=== PATIENT | male | born 1990 | race African-American/Black ===

== ENCOUNTER 2022-08-06 13:51 | Emergency (ER) | payer OTHER ==
[~2022-08-06] VITALS: Ht 162.6 cm; Wt 72.1 kg
[2022-08-06] MEDS ORDERED: MORPHINE 4 MG INJ. 4 MG/ML VIAL IVP ONE ×3 (14:30→18:15)
[2022-08-06] MEDS ORDERED: DIPHENHYDRAMINE INJ 50 MG/ML VIAL IVP ONE (14:30)
[2022-08-06] MEDS ORDERED: NACL 0.9% 1,000 ML IV ONE ×2 (14:30→16:15)
[2022-08-06] MEDS ORDERED: ONDANSETRON HCL 4 MG/2 ML VIAL IVP ONE ×3 (14:30→16:15)
[2022-08-06 14:59] LABS: HEMATOCRIT 23.1 % (36-54); HEMOGLOBIN 8.5 g/dL (14.0-18.0); MEAN CORPUSCULAR HEMOGLOBIN 38 pg (27-31); MEAN CORPUSCULAR HGB CONC 37 % (32-36); MEAN CORPUSCULAR VOLUME 102 fL (79.0-98.0); PLATELET COUNT (AUTO) 240 K/uL (130-430); RED BLOOD CELL COUNT(AUTO) 2.26 MIL/uL (4.2-6.2); RED CELL DISTRIBUTION WIDTH 20.7 % (9.0-15.0); WHITE BLOOD COUNT (AUTO) 9.8 K/uL (4.8-10.8)
[2022-08-06 15:14] LABS: ANION GAP 6 (5-15); CALCIUM 7.6 mg/dL (8.4-11.0); CHLORIDE 103 mmol/L (98-107); CREATININE 0.89 mg/dL (0.55-1.30); GFR AFRICAN AMERICAN 126 mL/min (>90); GLUCOSE 112 mg/dL (70-99); UREA NITROGEN, BLOOD 9 mg/dL (8-21)
[2022-08-06 15:20] LABS: ALANINE AMINOTRANSFERASE 11 U/L (12-78); ALBUMIN 3.7 g/dL (3.4-4.8); ASPARTATE AMINOTRANSFERASE 24 U/L (10-37); TOTAL BILIRUBIN 2.2 mg/dL (0.0-1.0)
[2022-08-06 16:35] LABS: EOSINOPHILS % (MANUAL) 0 % (0-7); LYMPHOCYTES % (MANUAL) 36 % (20-46); MONOCYTES % (MANUAL) 13 % (0-11)
[2022-08-06 16:36] LABS: BASOPHILS % (MANUAL) 0 % (0-2)
[2022-08-06 18:53] LABS: BILIRUBIN,URINE NEGATIVE (NEGATIVE); BLOOD, URINE NEGATIVE (NEGATIVE); CLARITY/URINE CLEAR (CLEAR); COLOR,URINE YELLOW (YELLOW); GLUCOSE,URINE NEGATIVE (NEGATIVE); KETONES,URINE NEGATIVE (NEGATIVE); LEUKOCYTE ESTERASE ,URINE TRACE (NEGATIVE); NITRITE, URINE NEGATIVE (NEGATIVE); PROTEIN URINE NEGATIVE (NEGATIVE)
[2022-08-06 19:18] VITALS: BP_SYST 112
[2022-08-06 19:30] LABS: BARBITURATE, URINE NEGATIVE (NEG <=200); BENZODIAZEPINE, URINE NEGATIVE (NEG <=150); CANNABINOID, URINE POSITIVE (NEG <=50); COCAINE, URINE NEGATIVE (NEG <=150); METHAMPHETAMINES SCREEN,URINE NEGATIVE (NEG <=500); OPIATE, URINE POSITIVE (NEG <=100); PHENCYCLIDINE SCREEN,URINE NEGATIVE (NEG <=25); URINE AMPHETAMINE NEGATIVE (NEG <=500); URINE METHADONE NEGATIVE (NEG <=200); URINE OXYCODONE SCREEN NEGATIVE (NEG <=100); URINE PROPOXYPHENE SCREEN NEGATIVE (NEG <=300)
[2022-08-06 19:32] LABS: UR TRICYCLIC ANTIDEPRESSANTS NEGATIVE (NEG <=300)
[2022-08-06 19:54] LABS: BACTERIA,URINE FEW /HPF (None Seen); MUCUS,URINE None Seen /LPF (None Seen); RBC,URINE 0-3 /HPF (0-3); WBC,URINE 0-3 /HPF (0-3)
== END 2022-08-06 19:18 | disposition home or self-care (01) ==
LOC: SED 13:51
DX: D57.00 Hb-SS disease with crisis, unspecified (principal); Z88.6 Allergy status to analgesic agent; Z79.899 Other long term (current) drug therapy; Z20.822 Contact with and (suspected) exposure to COVID-19
CPT/HCPCS: 99284; 96374; 96361; 96375; 87426; 85027; 80307; 80053; 83880; 85007; 85044; 86886; 86900; 86901; 87040; 87086; 84484; 36415; 96376; 83605; 81000; J1200; J2405; J2270; J7030

== ENCOUNTER 2022-08-13 10:05 | Emergency (ER) | payer OTHER ==
[~2022-08-13] VITALS: Ht 182.9 cm; Wt 72.1 kg
[2022-08-13 10:08] VITALS: BP_SYST 116
--- NOTE | 2022-08-13 10:10 | NUR ---
BROUGHT BACK TO BED #5 AND TRIAGED. REPORT GIVEN TO DENISSE
--- NOTE | 2022-08-13 10:45 | NUR ---
pt bib self c/o 10 out of 10 generalized pain. pt has a history of sickle cell and believes it is a flare up. pt states he was at work this morning when it began. pt has a history of sickle cell and asthma. pt states his last sc crisis was on the august 06, 2022. pt is gcs 15 eyes open spontaneously, oriented to [place], place, time, and situation. pt denies visual or hearing issues. pt denies sob and chest pain. pt breathing is even and unlabored. pt skin is warm to touch and pulses wnl on the right side. pt is in room 5 on the monitor plan of care continues.
[2022-08-13 10:51] VITALS: BP_SYST 119
--- NOTE | 2022-08-13 11:01 | NUR ---
ER at bedside examining patient.
--- NOTE | 2022-08-13 11:31 | NUR ---
CHETNA DSOUZA, CHARGE NURSE AND DR HORN AWARE
== END 2022-08-13 11:45 | disposition left against medical advice (07) ==
LOC: SED 10:05
DX: R52 Pain, unspecified (principal); D57.219 Sickle-cell/Hb-C disease with crisis, unspecified; Z88.6 Allergy status to analgesic agent; Z79.899 Other long term (current) drug therapy
CPT/HCPCS: 99281